=== PATIENT | female | born 1995 | race Caucasian/White ===

== ENCOUNTER → 2017-03-13 | Outpatient (CLI) | payer OTHER ==
[2017-03-13 16:16] LABS: ALBUMIN 3.8 GM/DL (3.2-5.2); ALBUMIN/GLOBULIN RATIO 1.03 (1.00-1.93); ALKALINE PHOSPHATASE 87 U/L (45-117); ALT/SGPT 23 U/L (12-78); ANION GAP 8 MEQ/L (8-16); AST/SGOT 14 U/L (15-37); BILIRUBIN,TOTAL 0.3 MG/DL (0.2-1.0); BLOOD UREA NITROGEN 13 MG/DL (7-18); CALCIUM LEVEL 8.3 MG/DL (8.5-10.1); CARBON DIOXIDE LEVEL 25 MEQ/L (21-32); CHLORIDE LEVEL 108 MEQ/L (98-107); CREATININE FOR GFR 0.75 MG/DL (0.55-1.02); GLOMERULAR FILTRATION RATE > 60.0 (>60); GLUCOSE, FASTING 81 MG/DL (70-105); SODIUM LEVEL 141 MEQ/L (136-145); TOTAL PROTEIN 7.5 GM/DL (6.4-8.2)
[2017-03-13 16:43] LABS: BASO % 0.4 % (0.0-1.0); EOS # 0.3 K/mm3 (0.0-0.50); EOS % 4.1 % (0.0-3.0); LARGE UNSTAINED CELL # 0.2 K/mm3 (0.0-0.4); LARGE UNSTAINED CELL % 2.6 % (0.0-4.0); LYMPH # 1.9 K/mm3 (1.5-6.5); LYMPH % 25.5 % (24.0-44.0); MEAN CORPUSCULAR HEMOGLOBIN 30.8 pg (27.0-33.0); MEAN CORPUSCULAR HGB CONC 33.6 g/dl (32.0-36.5); MEAN CORPUSCULAR VOLUME 91.8 fl (80.0-96.0); MONO # 0.4 K/mm3 (0.0-0.8); MONO % 5.3 % (0.0-5.0); NEUTROPHILS # 4.6 K/mm3 (1.8-7.7); PLATELET COUNT, AUTOMATED 328 k/mm3 (150-450); RED CELL DISTRIBUTION WIDTH 12.8 % (11.5-14.5); WHITE BLOOD COUNT 7.5 K/mm3 (4.0-10.0)
== END ==
LOC: M LAB 15:05
PROVIDERS: ATTEND Nurse Practitioner Family
DX: K21.9 Gastro-esophageal reflux disease without esophagitis (principal); F34.1 Dysthymic disorder

== ENCOUNTER 2017-04-03 09:59 | Emergency (ER) | payer OTHER ==
[~2017-04-03] VITALS: Ht 165.1 cm; Wt 74.8 kg
[2017-04-03] MEDS ORDERED: PARO15TA PO (10:14)
[2017-04-03] MEDS ORDERED: ADACEL/BOOSTRIX VACCINE (DIPHTH/PERTUSS/ACELL/TETANUS)0.5ML SYR (90715) IM ONE (10:45)
[2017-04-03] MEDS ORDERED: ULTR50TA PO ×2 (11:04→15:49)
[2017-04-03] MEDS ORDERED: AUGM875T27 PO (11:04)
[2017-04-03 11:11] VITALS: BP 127/90
== END 2017-04-03 11:19 | disposition home or self-care (01) ==
LOC: M ED 10:47
DX: S61.432A Puncture wound without foreign body of left hand, initial encounter (principal); W45.0XXA Nail entering through skin, initial encounter; Y92.017 Garden or yard in single-family (private) house as the place of occurrence of the external cause; Y93.89 Activity, other specified; Y99.9 Unspecified external cause status; F17.200 Nicotine dependence, unspecified, uncomplicated; Z79.899 Other long term (current) drug therapy

== ENCOUNTER 2017-09-25 20:04 | Emergency (ER) | payer OTHER ==
[~2017-09-25] VITALS: Ht 165.1 cm; Wt 81.8 kg
[~2017-09-25 20:04] MED LIST: AUGM875T28 PO; PARO15TA PO; ULTR50TA8 PO
[2017-09-25] MEDS ORDERED: prenatal PO (20:21)
[2017-09-25 20:54] LABS: MEAN CORPUSCULAR HGB CONC 33.9 g/dl (32.0-36.5); MEAN CORPUSCULAR VOLUME 88.5 fl (80.0-96.0); PLATELET COUNT, AUTOMATED 282 10^3/uL (150-450); RED CELL DISTRIBUTION WIDTH 11.9 % (11.5-14.5)
[2017-09-25 21:27] LABS: ANION GAP 11 MEQ/L (8-16); BLOOD UREA NITROGEN 11 MG/DL (7-18); CALCIUM LEVEL 8.6 MG/DL (8.5-10.1); CARBON DIOXIDE LEVEL 25 MEQ/L (21-32); CHLORIDE LEVEL 105 MEQ/L (98-107); CREATININE FOR GFR 0.64 MG/DL (0.55-1.02); GLOMERULAR FILTRATION RATE > 60.0 (>60); GLUCOSE, FASTING 72 MG/DL (70-105); HCG, SERUM QUANTITATIVE 786 MIU/ML; POTASSIUM SERUM 3.3 MEQ/L (3.5-5.1); SODIUM LEVEL 141 MEQ/L (136-145)
[2017-09-25 22:28] VITALS: BP 133/80
--- NOTE | 2017-09-25 22:30 | REPUSA ---
Clinical history: Pain. Findings: Real-time transabdominal and transvaginal ultrasound images of the pelvis were obtained. An anteverted uterus is noted, measuring 7.5 x 3.4 x 5.2 cm. The uterus demonstrates normal echotexture and echogenicity. There is a single intrauterine gestational sac with a mean sac diameter 3.0 cm. No pole or yolk sac is identified. The adnexa are unremarkable. The left ovary was not visualized . The right ovary measures 2.5 x 1.4 by 1.1 cm. There is no evidence of free fluid. Impression: Suspected early intrauterine gestational sac measuring 5 weeks. No pole or yolk sac is seen at this time, likely because of the early age of the gestation. Follow-up with serial serum beta hCG levels is recommended for further evaluation.
== END 2017-09-25 22:30 | disposition home or self-care (01) ==
LOC: M ED 20:04
DX: O20.0 Threatened abortion (principal); Z3A.01 Less than 8 weeks gestation of pregnancy; O99.331 Smoking (tobacco) complicating pregnancy, first trimester; F17.210 Nicotine dependence, cigarettes, uncomplicated

== ENCOUNTER → 2017-09-28 | Outpatient (CLI) | payer OTHER ==
[~2017-09-28] MED LIST changes: +prenatal PO
== END ==
LOC: M LAB 10:23
PROVIDERS: ATTEND Specialist
DX: Z34.80 Encounter for supervision of other normal pregnancy, unspecified trimester (principal)

== ENCOUNTER → 2017-10-05 | Outpatient (CLI) | payer OTHER | LOC: M LAB 09:40 | PROVIDERS: ATTEND Specialist | DX: O02.1 Missed abortion (principal) ==

== ENCOUNTER → 2018-02-01 | Outpatient (CLI) | payer OTHER, MEDICAID ==
[2018-02-01 17:43] LABS: BASO % 0.2 % (0.0-1.0); EOS # 0.1 10^3/uL (0.0-0.50); EOS % 0.8 % (0.0-3.0); HEMOGLOBIN 12.8 g/dl (12.0-16.0); IMMATURE GRANULOCYTE % 0.4 % (0-3.0); LYMPH # 2.1 10^3/uL (1.5-6.5); LYMPH % 18.1 % (24.0-44.0); MEAN CORPUSCULAR HEMOGLOBIN 29.3 pg (27.0-33.0); MEAN CORPUSCULAR HGB CONC 33.7 g/dl (32.0-36.5); MONO # 0.8 10^3/uL (0.0-0.8); MONO % 6.7 % (0.0-5.0); NEUTROPHILS # 8.6 10^3/uL (1.8-7.7); NEUTROPHILS % 73.8 % (36.0-66.0); PLATELET COUNT, AUTOMATED 285 10^3/uL (150-450); RED BLOOD COUNT 4.37 10^6/uL (4.00-5.40); RED CELL DISTRIBUTION WIDTH 12.6 % (11.5-14.5); WHITE BLOOD COUNT 11.7 10^3/uL (4.0-10.0)
[2018-02-01 21:18] LABS: CHLAMYDIA DNA AMPLIFICATION NEGATIVE (NEGATIVE); GC DNA AMPLIFICATION NEGATIVE (NEGATIVE)
[2018-02-03 14:39] LABS: RUBELLA IgG QUALITATIVE IMMUNE (IMMUNE)
[2018-02-03 14:40] LABS: HBsAg Prenatal NEGATIVE (NEGATIVE)
[2018-02-03 15:07] LABS: HEPATITIS C VIRUS ABY INDEX 0.2 INDEX (<0.8)
[2018-02-03 15:08] LABS: HIV 1&2 SCREEN CENTAUR NEGATIVE (NEGATIVE)
== END ==
LOC: M SMT 14:18
DX: Z3A.09 9 weeks gestation of pregnancy (principal); Z34.81 Encounter for supervision of other normal pregnancy, first trimester

== ENCOUNTER 2018-03-05 13:06 | Outpatient (REF) | payer OTHER, MEDICAID | END 2018-03-08 | LOC: M LAB REF 13:06 | DX: Z36.9 Encounter for antenatal screening, unspecified (principal) | CPT/HCPCS: 87088; 87186 ==

== ENCOUNTER → 2018-03-16 | Outpatient (CLI) | payer OTHER, MEDICAID | LOC: M RAD 11:05 | DX: Z34.82 Encounter for supervision of other normal pregnancy, second trimester (principal); Z3A.18 18 weeks gestation of pregnancy | CPT/HCPCS: 76817 ==

== ENCOUNTER → 2018-04-01 | Outpatient (REF) | payer OTHER, MEDICAID | LOC: M LAB REF 12:49 | DX: Z34.82 Encounter for supervision of other normal pregnancy, second trimester (principal) ==

== ENCOUNTER → 2018-04-13 | Outpatient (CLI) | payer OTHER, MEDICAID | LOC: M RAD 15:01 | DX: O44.42 Low lying placenta NOS or without hemorrhage, second trimester (principal); Z36.89 Encounter for other specified antenatal screening; Z3A.22 22 weeks gestation of pregnancy | CPT/HCPCS: 76817 ==

== ENCOUNTER → 2018-05-31 | Outpatient (CLI) | payer OTHER, MEDICAID ==
[2018-05-31 19:12] LABS: HEMATOCRIT 31.7 % (36.0-47.0); HEMOGLOBIN 10.7 g/dl (12.0-15.5); MEAN CORPUSCULAR HEMOGLOBIN 30.4 pg (27.0-33.0); MEAN CORPUSCULAR HGB CONC 33.8 g/dl (32.0-36.5); MEAN CORPUSCULAR VOLUME 90.1 fl (80.0-96.0); PLATELET COUNT, AUTOMATED 247 10^3/uL (150-450); RED BLOOD COUNT 3.52 10^6/uL (4.00-5.40); RED CELL DISTRIBUTION WIDTH 12.8 % (11.5-14.5); WHITE BLOOD COUNT 10.5 10^3/uL (4.0-10.0)
[2018-05-31 19:24] LABS: GLUCOSE CHALLENGE TEST 1 HOUR 117 MG/DL (LESS THAN 140)
== END ==
LOC: M SMT 13:03
DX: Z34.82 Encounter for supervision of other normal pregnancy, second trimester (principal); Z36.89 Encounter for other specified antenatal screening
CPT/HCPCS: 82950

== ENCOUNTER 2018-08-09 05:24 | Inpatient (IN) | payer OTHER, MEDICAID ==
[2018-08-09] MEDS ORDERED: BICITRA 30ML SOLN UDC As Ordered (05:40)
[2018-08-09] MEDS ORDERED: ceFAZolin 2 GM/D5W 50 ML IV BAG (J0690 PER 500MG) As Ordered (05:40)
[2018-08-09 05:57] LABS: HEMATOCRIT 34.2 % (36.0-47.0); HEMOGLOBIN 11.3 g/dl (12.0-15.5); MEAN CORPUSCULAR HEMOGLOBIN 29.5 pg (27.0-33.0); MEAN CORPUSCULAR VOLUME 89.3 fl (80.0-96.0); PLATELET COUNT, AUTOMATED 281 10^3/uL (150-450); RED BLOOD COUNT 3.83 10^6/uL (4.00-5.40); RED CELL DISTRIBUTION WIDTH 12.9 % (11.5-14.5); WHITE BLOOD COUNT 11.8 10^3/uL (4.0-10.0)
[2018-08-09] MEDS: LR 800 ML IV (06:00)
[2018-08-09] MEDS ORDERED: LR 1,000 ML IV (06:00)
[2018-08-09] MEDS: BICITRA 30ML SOLN UDC PO (07:15)
[2018-08-09] MEDS ORDERED: NALOXONE INJ 0.4 MG/1 ML VIAL (J2310) IV ×2 (07:57)
[2018-08-09] MEDS ORDERED: ONDANSETRON 4MG/2ML VIAL (J2405) IV ×2 (07:57→09:15)
[2018-08-09] MEDS ORDERED: fentaNYL 100 MCG/2 ML INJECTION (J3010) As Ordered (08:25)
[2018-08-09] MEDS ORDERED: OXYTOCIN INJ 10 UNITS/ML VIAL (J2590) As Ordered ×4 (08:25)
[2018-08-09] MEDS ORDERED: ONDANSETRON 4MG/2ML VIAL (J2405) As Ordered (08:25)
[2018-08-09] MEDS ORDERED: KETOROLAC 60 MG/2 ML VIAL (J1885) As Ordered (08:25)
[2018-08-09] MEDS ORDERED: MORPHINE PRES-FREE INJ 10 MG/10 ML VIAL (J2274) As Ordered (08:25)
[2018-08-09] MEDS ORDERED: RHOGAM 300 MCG (1500 IU) INJ (J2790) IM (09:00)
[2018-08-09] MEDS ORDERED: MEASLES,MUMPS,RUBELLA VACCINE INJ (MMR-II) (90707) SC (09:00)
[2018-08-09] MEDS: PRENATAL VITAMINS CHEWABLE TABLET PO (09:00)
[2018-08-09] MEDS ORDERED: MEPERIDINE INJ 25 MG/ML VIAL (J2175) As Ordered (09:10)
[2018-08-09] MEDS: MEPERIDINE INJ 25 MG/ML VIAL (J2175) IV (09:11)
[2018-08-09] MEDS ORDERED: PERCOCET 5MG/325MG TAB PO (09:15)
[2018-08-09] MEDS ORDERED: HYDROMORPHONE HCL 0.5 MG/ 0.5 ML SYRINGE (J1170 PER 1) IV (09:15)
[2018-08-09] MEDS ORDERED: fentaNYL 100 MCG/2 ML INJECTION (J3010) IV (09:15)
[2018-08-09] MEDS ORDERED: NALBUPHINE HCL 10 MG/ML AMP (J2300) IV (09:15)
[2018-08-09] MEDS: METOCLOPRAMIDE INJ 10MG/2ML VIAL (J2765) IV (10:57)
[2018-08-09] MEDS: LR 1,000 ML IV ×4 (11:05→19:00)
[2018-08-09] MEDS: NALBUPHINE HCL 10 MG/ML AMP (J2300) IV (12:42)
[2018-08-09] MEDS: ONDANSETRON 4MG/2ML VIAL (J2405) IV (13:40)
[2018-08-09] MEDS: KETOROLAC 30 MG/ML VIAL (J1885) IV ×2 (16:06→21:20)
[2018-08-09] MEDS: PERCOCET 5MG/325MG TAB PO (20:40)
[2018-08-10] MEDS ORDERED: PILL CRUSHER/CUTTER 1 EACH XX (00:30)
[2018-08-10] MEDS: PERCOCET 5MG/325MG TAB PO ×5 (01:04→20:20)
[2018-08-10] MEDS: FAMOTIDINE 20 MG TAB PO ×3 (01:05→20:20)
[2018-08-10] MEDS: KETOROLAC 30 MG/ML VIAL (J1885) IV (03:22)
[2018-08-10 06:48] LABS: HEMATOCRIT 25.6 % (36.0-47.0); MEAN CORPUSCULAR HEMOGLOBIN 29.6 pg (27.0-33.0); MEAN CORPUSCULAR HGB CONC 32.8 g/dl (32.0-36.5); MEAN CORPUSCULAR VOLUME 90.1 fl (80.0-96.0); PLATELET COUNT, AUTOMATED 199 10^3/uL (150-450); RED BLOOD COUNT 2.84 10^6/uL (4.00-5.40); WHITE BLOOD COUNT 10.3 10^3/uL (4.0-10.0)
[2018-08-10 06:51] LABS: HEMOGLOBIN 8.4 g/dl (12.0-15.5)
[2018-08-10] MEDS: PRENATAL VITAMINS CHEWABLE TABLET PO (09:55)
[2018-08-10] MEDS: IBUPROFEN 800 MG TAB PO ×2 (10:23→20:19)
[2018-08-10] MEDS: DOCUSATE SODIUM 100 MG CAP PO (20:19)
[2018-08-11] MEDS: IBUPROFEN 800 MG TAB PO ×2 (02:32→11:11)
[2018-08-11] MEDS: PERCOCET 5MG/325MG TAB PO (05:55)
[2018-08-11] MEDS: FAMOTIDINE 20 MG TAB PO (09:29)
[2018-08-11] MEDS: PRENATAL VITAMINS CHEWABLE TABLET PO (09:29)
[2018-08-11] MEDS: INFLUENZA QUADRIVALENT PF VACCINE 0.5ML SYRINGE (90686) IM (11:12)
== END 2018-08-11 11:52 | disposition home or self-care (01) | DRG 766 ==
LOC: M LDI 05:24 → M OBS 10:27
PROVIDERS: Specialist
PROC: 10D00Z1 Extraction of Products of Conception, Low, Open Approach (ICD-10-PCS; principal; 2018-08-09 07:30)
DX: O34.211 Maternal care for low transverse scar from previous cesarean delivery (principal); Z37.0 Single live birth; Z3A.39 39 weeks gestation of pregnancy

== ENCOUNTER → 2018-09-21 | Outpatient (CLI) | payer OTHER, MEDICAID ==
[2018-09-21 13:33] LABS: HEMATOCRIT 43.6 % (36.0-47.0); HEMOGLOBIN 13.5 g/dl (12.0-15.5); MEAN CORPUSCULAR HEMOGLOBIN 27.7 pg (27.0-33.0); MEAN CORPUSCULAR VOLUME 89.3 fl (80.0-96.0); PLATELET COUNT, AUTOMATED 376 10^3/uL (150-450); RED BLOOD COUNT 4.88 10^6/uL (4.00-5.40); RED CELL DISTRIBUTION WIDTH 13.2 % (11.5-14.5); WHITE BLOOD COUNT 6.6 10^3/uL (4.0-10.0)
[2018-09-21 13:39] LABS: CONTROL LINE HCG INT CTR LINE PRESENT; HCG, SERUM QUALITATIVE NEGATIVE (NEGATIVE)
== END ==
LOC: M SMT 09:56
DX: N92.4 Excessive bleeding in the premenopausal period (principal)
CPT/HCPCS: 84443

== ENCOUNTER 2018-11-04 21:24 | Emergency (ER) | payer OTHER, MEDICAID ==
[2018-11-05] MEDS: GI COCKTAIL 50ML BTL(HYOSCYAMINE/MAALOX/LIDOCAINE VISCOUS)(1:3:1) PO (00:41)
[2018-11-05 00:57] LABS: BASO % 0.2 % (0.0-1.0); EOS # 0.1 10^3/uL (0.0-0.50); EOS % 0.8 % (0.0-3.0); HEMATOCRIT 41.6 % (36.0-47.0); HEMOGLOBIN 13.5 g/dl (12.0-15.5); IMMATURE GRANULOCYTE % 0.4 % (0-3.0); LYMPH # 1.7 10^3/uL (1.5-6.5); LYMPH % 13.8 % (24.0-44.0); MEAN CORPUSCULAR HEMOGLOBIN 27.6 pg (27.0-33.0); MEAN CORPUSCULAR HGB CONC 32.5 g/dl (32.0-36.5); MEAN CORPUSCULAR VOLUME 85.1 fl (80.0-96.0); MONO # 0.7 10^3/uL (0.0-0.8); MONO % 6.1 % (0.0-5.0); NEUTROPHILS # 9.5 10^3/uL (1.8-7.7); NEUTROPHILS % 78.7 % (36.0-66.0); PLATELET COUNT, AUTOMATED 260 10^3/uL (150-450); RED BLOOD COUNT 4.89 10^6/uL (4.00-5.40); WHITE BLOOD COUNT 12.1 10^3/uL (4.0-10.0)
[2018-11-05 01:26] LABS: D-DIMER QUANT < 270 ng/ml (<500)
[2018-11-05 01:28] LABS: ANION GAP 9 MEQ/L (8-16); BLOOD UREA NITROGEN 13 MG/DL (7-18); CALCIUM LEVEL 8.6 MG/DL (8.5-10.1); CARBON DIOXIDE LEVEL 26 MEQ/L (21-32); CHLORIDE LEVEL 106 MEQ/L (98-107); CK-MB VALUE MASS < 1.0 NG/ML (<3.6); CPK CREATINE PHOSPHOKINASE 32 U/L (26-192); CREATININE FOR GFR 0.81 MG/DL (0.55-1.30); GLOMERULAR FILTRATION RATE > 60.0 (>60); GLUCOSE, FASTING 85 MG/DL (70-100); HCG, SERUM QUANTITATIVE < 1.0 MIU/ML; MB/CK RELATIVE INDEX 3.12 (< OR =4); POTASSIUM SERUM 3.5 MEQ/L (3.5-5.1); SODIUM LEVEL 141 MEQ/L (136-145); THYROID STIMULATING HORMONE 0.821 uIU/ML (0.358-3.740); TROPONIN I < 0.02 NG/ML (< 0.10)
== END 2018-11-05 02:13 | disposition home or self-care (01) ==
LOC: M ED 11-05 02:13
DX: K21.9 Gastro-esophageal reflux disease without esophagitis (principal); F17.200 Nicotine dependence, unspecified, uncomplicated
CPT/HCPCS: 71046

== ENCOUNTER 2018-11-07 18:29 | Emergency (ER) | payer OTHER, MEDICAID ==
[~2018-11-07] VITALS: Ht 165.1 cm; Wt 70.5 kg
[~2018-11-07 18:29] MED LIST changes: +AMOX500C PO; +COLA100C5 PO; +IBUP-1114 PO; +MIRE1IUD IU; +OMEP40CA2 PO; +OXYC1TAB23 PO; +PRENTAB9 PO; +RANI1TAB6 PO; +SIME180C PO; +SUCR1SS PO
[2018-11-07 18:30] VITALS: BP 121/70
[2018-11-07] MEDS ORDERED: GI COCKTAIL 50ML BTL(HYOSCYAMINE/MAALOX/LIDOCAINE VISCOUS)(1:3:1) PO ONE (19:30)
[2018-11-07] MEDS ORDERED: KETOROLAC 30 MG/ML VIAL (J1885) IV ONE (19:30)
[2018-11-07] MEDS ORDERED: NS 1,000 ML IV ONE (19:30)
[2018-11-07 19:49] LABS: BASO % 0.5 % (0.0-1.0); EOS # 0.1 10^3/uL (0.0-0.50); EOS % 0.8 % (0.0-3.0); HEMATOCRIT 41.3 % (36.0-47.0); HEMOGLOBIN 13.3 g/dl (12.0-15.5); LYMPH # 1.4 10^3/uL (1.5-6.5); MEAN CORPUSCULAR HEMOGLOBIN 27.4 pg (27.0-33.0); MEAN CORPUSCULAR HGB CONC 32.2 g/dl (32.0-36.5); MONO # 0.7 10^3/uL (0.0-0.8); MONO % 7.8 % (0.0-5.0); NEUTROPHILS # 6.2 10^3/uL (1.8-7.7); NEUTROPHILS % 73.3 % (36.0-66.0); PLATELET COUNT, AUTOMATED 306 10^3/uL (150-450); RED BLOOD COUNT 4.86 10^6/uL (4.00-5.40); WHITE BLOOD COUNT 8.5 10^3/uL (4.0-10.0)
[2018-11-07 20:07] LABS: HCG, SERUM QUALITATIVE NEGATIVE (NEGATIVE)
[2018-11-07 20:16] LABS: ALBUMIN 3.9 GM/DL (3.2-5.2); ALT/SGPT 272 U/L (12-78); BILIRUBIN,DIRECT 0.3 MG/DL (0.0-0.2); BILIRUBIN,TOTAL 0.5 MG/DL (0.2-1.0); BLOOD UREA NITROGEN 17 MG/DL (7-18); CALCIUM LEVEL 8.6 MG/DL (8.5-10.1); CARBON DIOXIDE LEVEL 25 MEQ/L (21-32); CHLORIDE LEVEL 109 MEQ/L (98-107); CREATININE FOR GFR 0.75 MG/DL (0.55-1.30); GLOMERULAR FILTRATION RATE > 60.0 (>60); GLUCOSE, FASTING 104 MG/DL (70-100); LIPASE 105 U/L (73-393); SODIUM LEVEL 143 MEQ/L (136-145); TOTAL PROTEIN 7.6 GM/DL (6.4-8.2)
--- NOTE | 2018-11-07 22:05 | REPVR ---
EXAM: US Abdomen Limited, Right Upper Quadrant EXAM DATE/TIME: 11/07/2018 9:12 PM CLINICAL HISTORY: 23 years old, female; Pain; Abdominal pain; Acute; Additional info: Elev. Lfts, epigastric pain TECHNIQUE: Real-time ultrasound of the abdomen with image documentation. Examination was focused on the right upper quadrant. COMPARISON: No relevant prior studies available. FINDINGS: Liver: The liver demonstrates no focal defects. Gallbladder: The gallbladder demonstrates no wall thickening measuring 1-2 mm. There are multiple shadowing gallstones. Common bile duct: The common bile duct measures 5 mm. Pancreas: The pancreas is normal in the head and body. The tail is not well seen due to gas shadowing. Right kidney: The right kidney is normal measuring 11.1 cm. IMPRESSION: 1. Cholelithiasis with multiple shadowing stones. There is no gallbladder wall thickening. 2. Otherwise negative right upper quadrant sonogram. Electronically signed by: Manuelito Sousa On 11/07/2018 22:04:27 PM
[2018-11-07] MEDS ORDERED: ISOVUE-370 76% 100ML VIAL (Q9967) As Ordered ONE (22:27)
[2018-11-07] MEDS ORDERED: PANTOPRAZOLE 40MG INJ (PROTONIX) (C9113) IV ONE (22:30)
--- NOTE | 2018-11-07 22:52 | REPVR ---
EXAM: CT Chest With Contrast EXAM DATE/TIME: 11/07/2018 10:33 PM CLINICAL HISTORY: 23 years old, female; Pain; Chest pain; Type not specified; Additional info: Chest pain, esophagitis, elev lfts TECHNIQUE: Axial computed tomography images of the chest with intravenous contrast. All CT scans at this facility use at least one of these dose optimization techniques: automated exposure control; mA and/or kV adjustment per patient size (includes targeted exams where dose is matched to clinical indication); or iterative reconstruction. Coronal and sagittal reformatted images were created and reviewed. CONTRAST: 100 ml of ISOVUE 370 administered intravenously. COMPARISON: CR Chest, 2 view PA, Lat 11/07/2018 8:16 PM FINDINGS: Lungs: Minimal subpleural atelectasis in the right lower lobe and possible minimal groundglass infiltrate. Pleural space: Normal. No pneumothorax. No pleural effusion. Heart: Normal. No cardiomegaly. No pericardial effusion. Mediastinum: The esophagus is within normal limits. Aorta: Normal. No aortic aneurysm. Lymph nodes: Unremarkable. No enlarged lymph nodes. Bones/joints: Unremarkable. No acute fracture. Soft tissues: Unremarkable. Liver: Slight periportal edema in the right hepatic lobe. IMPRESSION: 1. Slight periportal edema in the right hepatic lobe. 2. Minimal posterior subpleural atelectasis and possible minimal infiltrate in the right lower lobe. 3. Otherwise negative CT chest. Electronically signed by: Manuelito Sousa On 11/07/2018 22:52:00 PM
--- NOTE | 2018-11-07 22:57 | REPVR ---
EXAM: CT Abdomen With Contrast EXAM DATE/TIME: 11/07/2018 10:33 PM CLINICAL HISTORY: 23 years old, female; Pain; Abdominal pain; Epigastric; Additional info: Chest pain, esophagitis, elev lfts TECHNIQUE: Axial computed tomography images of the abdomen with intravenous contrast. All CT scans at this facility use at least one of these dose optimization techniques: automated exposure control; mA and/or kV adjustment per patient size (includes targeted exams where dose is matched to clinical indication); or iterative reconstruction. Coronal and sagittal reformatted images were created and reviewed. CONTRAST: 100 ml of ISOVUE 370 administered intravenously. COMPARISON: GALLBLADDER US 11/07/2018 8:51 PM FINDINGS: Lower thorax: Minimal right lower lobe subpleural atelectasis and possible minimal ground glass infiltrate. Liver: Slight periportal edema in portions of the right hepatic lobe. Gallbladder and bile ducts: Layering sludge and probable faint stones in the gallbladder. Pancreas: The CBD is not dilated measuring approximately 5 mm in the pancreatic head. Spleen: Normal. No splenomegaly. Adrenals: Normal. No mass. Kidneys and ureters: Small nonobstructing left renal calculus. Stomach and bowel: Normal. No obstruction. No mucosal thickening. Intraperitoneal space: Unremarkable. No free air. No significant fluid collection. Bones/joints: Unremarkable.No acute fracture. No dislocation. Soft tissues: Unremarkable. Vasculature: Unremarkable. No abdominal aortic aneurysm. Lymph nodes: Unremarkable. No enlarged lymph nodes. IMPRESSION: 1. Layering sludge and probable faint gallstones in the gallbladder. 2. Slight periportal edema in portions of the right hepatic lobe. 3. Minimal right lower lobe subpleural atelectasis possible groundglass infiltrate posteriorly. 4. Small nonobstructing left renal calculus. 5. Otherwise negative CT abdomen/pelvis. Electronically signed by: Manuelito Sousa On 11/07/2018 22:57:10 PM
[2018-11-07] MEDS ORDERED: PROT1TAB2 PO (23:12)
[2018-11-07] MEDS ORDERED: LIDO1SOL7 PO (23:12)
[2018-11-07] MEDS ORDERED: PROT20TA11 PO (23:18)
[2018-11-08 08:30] LABS: HEPATITIS A ANTIBODY IGM NEGATIVE (NEGATIVE); HEPATITIS B CORE ANTIBODY IGM NEGATIVE (NEGATIVE); HEPATITIS B SURFACE ANTIGEN NEGATIVE (NEGATIVE); HEPATITIS C VIRUS ABY INDEX 0.1 INDEX (<0.8)
--- NOTE | 2018-11-10 09:02 | REP ---
Clinical: Lower chest and abdominal pain . Comparison: 11/05/2018 . Technique: PA and lateral. Findings: The mediastinum and cardiac silhouette are normal. The lung malik are clear and without acute consolidation, effusion, or pneumothorax. The skeletal structures are intact and normal. Impression: 1. No acute cardiopulmonary process. Electronically Signed by Cleveland Ojeda MD 11/07/2018 08:20 P
--- NOTE | 2018-11-13 08:54 | ED PDOC ---
Post-Departure Follow-Up radiology rpeor tfaxed to Kane Magdaleno Sarah MD Nov 13, 2018 08:54
[2018-11-14] MEDS ORDERED: CEFD1CAP8 PO (03:21)
== END 2018-11-07 23:23 | disposition home or self-care (01) ==
LOC: M ED 18:29
DX: K21.0 Gastro-esophageal reflux disease with esophagitis (principal); R79.89 Other specified abnormal findings of blood chemistry; Z97.5 Presence of (intrauterine) contraceptive device; F17.210 Nicotine dependence, cigarettes, uncomplicated
CPT/HCPCS: 71046; 71260; 74160; 76705; 80048; 80076; 83690; 84703; 85025; 86705; 86709; 86803; 87340; 96374; 96375; 99284; C9113; J1885; Q9967

== ENCOUNTER 2018-11-17 03:00 | Emergency (ER) | payer OTHER, MEDICAID ==
[~2018-11-17] VITALS: Ht 165.1 cm; Wt 70.5 kg
[~2018-11-17 03:00] MED LIST changes: +CEFD1CAP8 PO; +LIDO1SOL7 PO; +PROT1TAB2 PO; +PROT20TA11 PO
[2018-11-17 03:51] LABS: BASO % 0.3 % (0.0-1.0); EOS # 0.2 10^3/uL (0.0-0.50); EOS % 2.1 % (0.0-3.0); HEMATOCRIT 38.5 % (36.0-47.0); HEMOGLOBIN 12.4 g/dl (12.0-15.5); LYMPH # 1.5 10^3/uL (1.5-6.5); LYMPH % 17.3 % (24.0-44.0); MEAN CORPUSCULAR HEMOGLOBIN 27.3 pg (27.0-33.0); MEAN CORPUSCULAR HGB CONC 32.2 g/dl (32.0-36.5); MEAN CORPUSCULAR VOLUME 84.8 fl (80.0-96.0); MONO # 0.6 10^3/uL (0.0-0.8); MONO % 7.4 % (0.0-5.0); NEUTROPHILS # 6.3 10^3/uL (1.8-7.7); NEUTROPHILS % 72.4 % (36.0-66.0); PLATELET COUNT, AUTOMATED 306 10^3/uL (150-450); RED BLOOD COUNT 4.54 10^6/uL (4.00-5.40); WHITE BLOOD COUNT 8.7 10^3/uL (4.0-10.0)
[2018-11-17 04:38] LABS: ALBUMIN 3.7 GM/DL (3.2-5.2); ALT/SGPT 66 U/L (12-78); BILIRUBIN,DIRECT 0.1 MG/DL (0.0-0.2); BILIRUBIN,TOTAL 0.2 MG/DL (0.2-1.0); BLOOD UREA NITROGEN 18 MG/DL (7-18); CALCIUM LEVEL 8.6 MG/DL (8.5-10.1); CARBON DIOXIDE LEVEL 26 MEQ/L (21-32); CHLORIDE LEVEL 104 MEQ/L (98-107); GLOMERULAR FILTRATION RATE > 60.0 (>60); GLUCOSE, FASTING 108 MG/DL (70-100); LIPASE 138 U/L (73-393); POTASSIUM SERUM 4.4 MEQ/L (3.5-5.1); SODIUM LEVEL 139 MEQ/L (136-145); TOTAL PROTEIN 7.5 GM/DL (6.4-8.2)
[2018-11-17 04:44] LABS: HCG, SERUM QUALITATIVE NEGATIVE (NEGATIVE)
--- NOTE | 2018-11-17 07:37 | REPVR ---
EXAM: US Abdomen Limited, Right Upper Quadrant EXAM DATE/TIME: 11/17/2018 7:26 AM CLINICAL HISTORY: 23 years old, female; Pain; Abdominal pain; Epigastric; Additional info: Ruq pain; HX gallstones TECHNIQUE: Real-time ultrasound of the abdomen with image documentation. Examination was focused on the right upper quadrant. COMPARISON: GALLBLADDER US 11/07/2018 8:51 PM FINDINGS: Liver: The liver is heterogeneous and echogenic. No focal hepatic lesion is identified. Gallbladder: The gallbladder is filled with gallstones and sludge - BASILIA sign. The anterior gallbladder wall is upper normal in thickness measuring 3 mm with no wall edema or pericholecystic fluid. No sonographic Knight sign was elicited. Common bile duct: The CBD is normal in size measuring 4 mm. Pancreas: The pancreas is obscured by bowel gas. Right kidney: The right kidney measures 10.8 x 5.1 x 4.0 cm. The right renal cortical echogenicity is within normal limits. There is no right renal mass, stone, cyst or hydronephrosis. IMPRESSION: 1. Filled gallbladder with stones and sludge but with no definite sonographic findings of acute cholecystitis. Correlate clinically. If clinically indicated HIDA scan may be obtained for further evaluation. 2. Fatty infiltration of the liver. Electronically signed by: Erickson Bingham On 11/17/2018 07:36:52 AM
[2018-11-17] MEDS ORDERED: ZOFR4TAB14 PO (08:06)
[2018-11-17 08:33] VITALS: BP 103/61
== END 2018-11-17 08:36 | disposition home or self-care (01) ==
LOC: M ED 03:00
DX: K80.20 Calculus of gallbladder without cholecystitis without obstruction (principal); K83.8 Other specified diseases of biliary tract; K76.0 Fatty (change of) liver, not elsewhere classified; R11.0 Nausea; Z87.19 Personal history of other diseases of the digestive system; K21.9 Gastro-esophageal reflux disease without esophagitis; F41.9 Anxiety disorder, unspecified; I49.3 Ventricular premature depolarization; F17.200 Nicotine dependence, unspecified, uncomplicated; Z79.899 Other long term (current) drug therapy; Z79.2 Long term (current) use of antibiotics

== ENCOUNTER 2018-12-24 09:26 | Day surgery (SDC) | payer OTHER, MEDICAID ==
[~2018-12-24] VITALS: Ht 165.1 cm; Wt 67.1 kg
[~2018-12-24 09:26] MED LIST changes: +LR 1,000 ML IV ONE; +PROPOFOL 200 MG/20 ML VIAL As Ordered ONE; +ZOFR4TAB14 PO
[2018-12-24] MEDS ORDERED: dexameTHASONE 4 MG/ML 1ML VIAL (J1100) As Ordered ONE (09:27)
[2018-12-24] MEDS ORDERED: ROCURONIUM BROMIDE 50 MG/5 ML VIAL As Ordered ONE (09:27)
[2018-12-24] MEDS ORDERED: LIDOCAINE 2% INJ 100 MG/5 ML SDV (FOR ANES.) As Ordered ONE (09:27)
[2018-12-24] MEDS ORDERED: fentaNYL 250 MCG/5 ML INJECTION (J3010) As Ordered ONE (09:27)
[2018-12-24] MEDS ORDERED: SUGAMMADEX SODIUM 500 MG/5 ML VIAL (BRIDION) As Ordered ONE (09:27)
[2018-12-24] MEDS ORDERED: ONDANSETRON 4MG/2ML VIAL (J2405) As Ordered ONE (09:27)
[2018-12-24] MEDS ORDERED: MIDAZOLAM INJ 2 MG/2 ML VIAL (J2250) As Ordered ONE ×2 (09:28→11:12)
[2018-12-24] MEDS ORDERED: KETOROLAC 60 MG/2 ML VIAL (J1885) As Ordered ONE (09:28)
[2018-12-24 10:13] LABS: URINE PREG TEST NEGATIVE (NEGATIVE)
[2018-12-24] MEDS ORDERED: METOCLOPRAMIDE INJ 10MG/2ML VIAL (J2765) IV ONE (10:45)
[2018-12-24] MEDS ORDERED: LIDOCAINE W/EPINEPHRINE 1% 20ML VIAL As Ordered ONE (11:25)
[2018-12-24] MEDS ORDERED: NORCO, ANEXSIA 5/325MG TABLET (HYDROcodone/ACETAMINOPHEN) PO PRN (13:00)
[2018-12-24] MEDS ORDERED: HYDROMORPHONE HCL 0.5 MG/ 0.5 ML SYRINGE (J1170 PER 1) IV PRN (13:00)
[2018-12-24] MEDS ORDERED: MEPERIDINE INJ 25 MG/ML VIAL (J2175) As Ordered ONE (13:15)
[2018-12-24] MEDS ORDERED: MEPERIDINE INJ 25 MG/ML VIAL (J2175) IV ONE (13:30)
[2018-12-24] MEDS: fentaNYL 100 MCG/2 ML INJECTION (J3010) IV PRN ×2 (13:31→13:36)
[2018-12-24 15:15] VITALS: BP 131/78
--- NOTE | 2018-12-27 14:08 | RO ---
DATE OF PROCEDURE: 12/24/2018 PREOPERATIVE DIAGNOSIS: Symptomatic cholelithiasis. POSTOPERATIVE DIAGNOSIS: Symptomatic cholelithiasis. PROCEDURE: Laparoscopic cholecystectomy. SURGEON: Dr. Jackson [employer] WORKER: Leisa Meng NP ANESTHESIA: General. ESTIMATED BLOOD LOSS: 5. COMPLICATIONS: None. INDICATIONS FOR PROCEDURE: Patient is a 23-year-old female, who presents with symptomatic cholelithiasis. Recommendation was to proceed laparoscopic, possible open cholecystectomy. Risks and benefits of the procedure not limited but including bleeding, infection, hernia formation, damage to surrounding structure, need for further surgery were discussed in detail with the patient. Informed was obtained and procedure was planned. DESCRIPTION OF PROCEDURE: The patient brought back to operating room #7. After sufficient sedation, the abdomen was sterilely prepped and draped. Next, a time-out was done to confirm proper patient and proper procedure. Following that a stab incision made in left lower quadrant, Veress needle was inserted and the abdomen was insufflated to 50 mmHg. Next, the Veress needle was left in place. A 5 mm Optiview port was placed infraumbilically in the midline. The 5 mm Optiview port was used to gain access to the abdomen there and once inside Veress needle site was examined. There were no signs of any injury. The Veress needle was then removed. The 11 mm port was then placed subxiphoid and two 5 mm ports in the right upper quadrant. The gallbladder was elevated up towards the right shoulder. The cystic duct and cystic artery were dissected free using a combination of blunt and sharp dissection. Once they were both clearly identified, they were both doubly clipped and cut. Due to the large size of the cystic duct, it was doubly clipped and then had a PDS Endoloop placed around the base of it as well. Once that was completed, the gallbladder was removed from the gallbladder fossa using electrocautery. It was removed intact and brought out through the epigastric port site in a 10 mm Endo Catch bag. However., during removal from the abdomen, the bag burst open and spilled some of the stones inside, which were all retrieved with a separate bag. Once that was completed, the right upper quadrant was irrigated. The abdomen was then desufflated. Skin incisions closed with #4-0 Vicryl subcuticular sutures. The abdomen cleaned and dried. Steri-Strips, 4 x 4 and tape were applied, thus ending procedure. edited: 01/05/2019 1228 [id number] [id number]
== END 2018-12-24 15:17 | disposition home or self-care (01) ==
LOC: M SDC 09:26
PROVIDERS: ATTEND Surgery
DX: K80.10 Calculus of gallbladder with chronic cholecystitis without obstruction (principal); F41.9 Anxiety disorder, unspecified; F32.9 Major depressive disorder, single episode, unspecified; I49.3 Ventricular premature depolarization; K21.9 Gastro-esophageal reflux disease without esophagitis; Z87.442 Personal history of urinary calculi; Z72.0 Tobacco use; Z97.5 Presence of (intrauterine) contraceptive device
CPT/HCPCS: 47562; 84703; 88304; J1100; J1885; J2175; J2250; J2405; J2765; J3010

== ENCOUNTER 2018-12-26 13:19 | Emergency (ER) | payer OTHER, MEDICAID ==
[~2018-12-26] VITALS: Ht 165.1 cm; Wt 67.3 kg
[~2018-12-26 13:19] MED LIST changes: -LR 1,000 ML IV ONE; -PROPOFOL 200 MG/20 ML VIAL As Ordered ONE
[2018-12-26] MEDS ORDERED: IBUP200C25 PO (13:33)
[2018-12-26] MEDS ORDERED: HYDR-3713 PO (13:33)
--- NOTE | 2018-12-26 15:01 | REP ---
CHEST, TWO VIEWS: There is no evidence of acute infiltrate. No pleural effusion is seen. The heart is normal in size. The mediastinal silhouette is unremarkable. The visualized osseous structures are intact. IMPRESSION: No acute pulmonary disease. Electronically Signed by Alexx Marie MD 12/26/2018 07:08 P
[2018-12-26] MEDS ORDERED: MORPHINE 4 MG/ML 1ML VIAL/SYRINGE (J2270) IV ONE (15:15)
[2018-12-26 15:31] LABS: BASO % 0.4 % (0.0-1.0); EOS # 0.1 10^3/uL (0.0-0.50); EOS % 1.8 % (0.0-3.0); HEMATOCRIT 36.8 % (36.0-47.0); LYMPH # 2.6 10^3/uL (1.5-6.5); LYMPH % 38.2 % (24.0-44.0); MEAN CORPUSCULAR HEMOGLOBIN 27.5 pg (27.0-33.0); MEAN CORPUSCULAR HGB CONC 32.6 g/dl (32.0-36.5); MEAN CORPUSCULAR VOLUME 84.2 fl (80.0-96.0); MONO # 0.4 10^3/uL (0.0-0.8); MONO % 6.6 % (0.0-5.0); NEUTROPHILS # 3.5 10^3/uL (1.8-7.7); NEUTROPHILS % 52.7 % (36.0-66.0); PLATELET COUNT, AUTOMATED 231 10^3/uL (150-450); RED BLOOD COUNT 4.37 10^6/uL (4.00-5.40); WHITE BLOOD COUNT 6.7 10^3/uL (4.0-10.0)
[2018-12-26 15:38] VITALS: BP 128/65
[2018-12-26] MEDS ORDERED: KETOROLAC 30 MG/ML VIAL (J1885) IV ONE (15:45)
[2018-12-26 15:49] LABS: ALBUMIN 3.5 GM/DL (3.2-5.2); ALT/SGPT 48 U/L (12-78); BILIRUBIN,DIRECT < 0.1 MG/DL (0.0-0.2); BILIRUBIN,TOTAL 0.4 MG/DL (0.2-1.0); BLOOD UREA NITROGEN 10 MG/DL (7-18); CARBON DIOXIDE LEVEL 24 MEQ/L (21-32); CHLORIDE LEVEL 109 MEQ/L (98-107); CREATININE FOR GFR 0.71 MG/DL (0.55-1.30); GLOMERULAR FILTRATION RATE > 60.0 (>60); GLUCOSE, FASTING 78 MG/DL (70-100); LIPASE 55 U/L (73-393); POTASSIUM SERUM 5.1 MEQ/L (3.5-5.1); SODIUM LEVEL 139 MEQ/L (136-145); TOTAL PROTEIN 6.7 GM/DL (6.4-8.2)
[2018-12-26] MEDS ORDERED: SIME180C PO (15:58)
[2018-12-26] MEDS ORDERED: MIRA3350 PO (16:00)
== END 2018-12-26 16:14 | disposition home or self-care (01) ==
LOC: M ED 13:19
DX: G89.18 Other acute postprocedural pain (principal); Z90.49 Acquired absence of other specified parts of digestive tract; F41.9 Anxiety disorder, unspecified; Z97.5 Presence of (intrauterine) contraceptive device; Z87.891 Personal history of nicotine dependence
CPT/HCPCS: 71046; 80048; 80076; 83690; 85025; 96374; 99283; J1885

== ENCOUNTER → 2020-12-06 | Outpatient (REF) | payer OTHER ==
[~2020-12-06] MED LIST changes: +HYDR-3713 PO; +IBUP200C25 PO; -LIDO1SOL7 PO; +LIDO2SOL17 PO; +MIRA3350 PO; -OMEP40CA2 PO; +OMEP40CA97 PO; -PARO15TA PO; +PARO30TA4 PO; +RANI-397 PO; -RANI1TAB6 PO
[2020-12-06 12:45] LABS: BASO % 0.4 % (0.0-1.0); EOS # 0.2 10^3/uL (0.0-0.5); EOS % 2.3 % (0.0-3.0); HEMOGLOBIN 14.6 g/dl (12.0-15.5); LYMPH # 2.5 10^3/uL (1.5-5.0); LYMPH % 32.5 % (24.0-44.0); MEAN CORPUSCULAR HEMOGLOBIN 29.7 pg (27.0-33.0); MEAN CORPUSCULAR HGB CONC 33.2 g/dl (32.0-36.5); MEAN CORPUSCULAR VOLUME 89.4 fl (80.0-96.0); MONO # 0.6 10^3/uL (0.0-0.8); MONO % 8.1 % (0.0-5.0); NEUTROPHILS # 4.3 10^3/uL (1.5-8.5); NEUTROPHILS % 56.1 % (36.0-66.0); PLATELET COUNT, AUTOMATED 286 10^3/uL (150-450); RED BLOOD COUNT 4.92 10^6/uL (4.00-5.40); WHITE BLOOD COUNT 7.7 10^3/uL (4.0-10.0)
[2020-12-06 13:22] LABS: ALBUMIN 3.8 GM/DL (3.2-5.2); ALT/SGPT 35 U/L (12-78); BILIRUBIN,TOTAL 0.3 MG/DL (0.2-1.0); BLOOD UREA NITROGEN 12 MG/DL (7-18); CALCIUM LEVEL 9.5 MG/DL (8.5-10.1); CARBON DIOXIDE LEVEL 28 MEQ/L (21-32); CHLORIDE LEVEL 105 MEQ/L (98-107); CHOLESTEROL LEVEL 262 MG/DL (<200); CHOLESTEROL RISK RATIO 5.574 (<5); CREATININE FOR GFR 0.89 MG/DL (0.55-1.30); FREE T4 1.03 NG/DL (0.76-1.46); GLOMERULAR FILTRATION RATE > 60.0 (>60); GLUCOSE, FASTING 95 MG/DL (70-100); HDL CHOLESTEROL 47 MG/DL (>40); LDL CHOLESTEROL 175 MG/DL (<100); NON-HDL-C 215 MG/DL; POTASSIUM SERUM 4.6 MEQ/L (3.5-5.1); SODIUM LEVEL 140 MEQ/L (136-145); TOTAL PROTEIN 7.4 GM/DL (6.4-8.2); TRIGLYCERIDES LEVEL 201 MG/DL (<150)
== END ==
LOC: M SFHCADAM 10:35
PROVIDERS: ATTEND Family Medicine
DX: Z00.00 Encounter for general adult medical examination without abnormal findings (principal); R00.2 Palpitations; R53.83 Other fatigue

== ENCOUNTER 2021-06-03 14:52 | Emergency (ER) | payer OTHER ==
[~2021-06-03] VITALS: Ht 165.1 cm; Wt 83.1 kg
[~2021-06-03 14:52] MED LIST changes: +OMEP40CA4 PO; -OMEP40CA97 PO; -SIME180C PO; +SIME180C25 PO
[2021-06-03 14:53] VITALS: BP 140/91
[2021-06-03] MEDS ORDERED: ACETAMINOPHEN 500 MG TAB PO ONE (18:05)
== END 2021-06-04 12:04 | disposition left against medical advice (07) ==
LOC: M ED 14:52
DX: Z53.9 Procedure and treatment not carried out, unspecified reason (principal); H92.02 Otalgia, left ear; F17.200 Nicotine dependence, unspecified, uncomplicated; Z97.5 Presence of (intrauterine) contraceptive device

== ENCOUNTER 2021-06-16 15:43 | Emergency (ER) | payer OTHER ==
[~2021-06-16] VITALS: Ht 165.1 cm; Wt 81.3 kg
[2021-06-16] MEDS ORDERED: GI COCKTAIL 50ML BTL(HYOSCYAMINE/MAALOX/LIDOCAINE VISCOUS)(1:3:1) PO ONE (18:25)
[2021-06-16 18:30] LABS: BASO % 0.3 % (0.0-1.0); EOS # 0.1 10^3/uL (0.0-0.5); EOS % 0.7 % (0.0-3.0); HEMATOCRIT 46.9 % (36.0-47.0); HEMOGLOBIN 15.7 g/dl (12.0-15.5); LYMPH # 1.4 10^3/uL (1.5-5.0); LYMPH % 13.6 % (24.0-44.0); MEAN CORPUSCULAR HEMOGLOBIN 29.3 pg (27.0-33.0); MEAN CORPUSCULAR HGB CONC 33.5 g/dl (32.0-36.5); MEAN CORPUSCULAR VOLUME 87.5 fl (80.0-96.0); MONO # 0.3 10^3/uL (0.0-0.8); MONO % 2.6 % (2.0-8.0); NEUTROPHILS # 8.4 10^3/uL (1.5-8.5); NEUTROPHILS % 82.5 % (36.0-66.0); PLATELET COUNT, AUTOMATED 300 10^3/uL (150-450); RED BLOOD COUNT 5.36 10^6/uL (4.00-5.40); WHITE BLOOD COUNT 10.1 10^3/uL (4.0-10.0)
[2021-06-16 18:59] LABS: HCG, SERUM QUALITATIVE NEGATIVE (NEGATIVE)
[2021-06-16 19:01] LABS: BLOOD UREA NITROGEN 14 MG/DL (7-18); CALCIUM LEVEL 9.2 MG/DL (8.5-10.1); CARBON DIOXIDE LEVEL 27 MEQ/L (21-32); CHLORIDE LEVEL 105 MEQ/L (98-107); CK-MB VALUE MASS < 1.0 NG/ML (<3.6); CPK CREATINE PHOSPHOKINASE 54 U/L (26-192); GLOMERULAR FILTRATION RATE > 60.0 (>60); GLUCOSE, FASTING 85 MG/DL (70-100); MB/CK RELATIVE INDEX 1.85 (< OR =4); POTASSIUM SERUM 4.3 MEQ/L (3.5-5.1); SODIUM LEVEL 140 MEQ/L (136-145); TROPONIN I < 0.02 NG/ML (< 0.10)
[2021-06-16] MEDS ORDERED: SUCR1TA PO (19:14)
[2021-06-16] MEDS ORDERED: PROT1TAB2 PO (19:14)
[2021-06-16] MEDS ORDERED: ACETAMINOPHEN 500 MG TAB PO ONE (19:20)
[2021-06-16 19:30] VITALS: BP 129/83
--- NOTE | 2021-06-17 19:46 | ECGEPIP ---
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
== END 2021-06-16 19:30 | disposition home or self-care (01) ==
LOC: M ED 15:43
DX: K21.9 Gastro-esophageal reflux disease without esophagitis (principal); R10.13 Epigastric pain; F41.9 Anxiety disorder, unspecified; F17.200 Nicotine dependence, unspecified, uncomplicated; I49.3 Ventricular premature depolarization; Z79.3 Long term (current) use of hormonal contraceptives

== ENCOUNTER → 2021-11-22 | Outpatient (CLI) | payer OTHER ==
[~2021-11-22] MED LIST changes: -CEFD1CAP8 PO; +CEFD300C41 PO; +SUCR1TA PO
== END ==
LOC: M LABSMTC 09:52
PROVIDERS: ATTEND Anesthesiology
DX: Z01.812 Encounter for preprocedural laboratory examination (principal); Z20.822 Contact with and (suspected) exposure to COVID-19

== ENCOUNTER 2021-11-27 13:48 | Day surgery (SDC) | payer OTHER ==
[~2021-11-27] VITALS: Ht 165.1 cm; Wt 82.9 kg
[~2021-11-27 13:48] MED LIST changes: +LR 1,000 ML IV ONE
[2021-11-27 14:59] LABS: HEMATOCRIT 40.8 % (36.0-47.0); HEMOGLOBIN 13.7 g/dl (12.0-15.5); MEAN CORPUSCULAR HEMOGLOBIN 29.3 pg (27.0-33.0); MEAN CORPUSCULAR HGB CONC 33.6 g/dl (32.0-36.5); MEAN CORPUSCULAR VOLUME 87.4 fl (80.0-96.0); PLATELET COUNT, AUTOMATED 270 10^3/uL (150-450); RED BLOOD COUNT 4.67 10^6/uL (4.00-5.40); WHITE BLOOD COUNT 8.3 10^3/uL (4.0-10.0)
[2021-11-27] MEDS ORDERED: IBUP-1022 PO (15:24)
[2021-11-27] MEDS ORDERED: OXYC1TAB23 PO (15:25)
[2021-11-27] MEDS ORDERED: HYDROmorphone HCL 2MG/ML 1ML VIAL As Ordered ONE (15:46)
[2021-11-27] MEDS ORDERED: MIDAZOLAM INJ 2MG/2ML VIAL (J2250 PER 1MG) As Ordered ONE (15:46)
[2021-11-27] MEDS ORDERED: propofoL 200 MG/20 ML VIAL As Ordered ONE (15:47)
[2021-11-27] MEDS ORDERED: fentaNYL 100 MCG/2 ML INJECTION (J3010) As Ordered ONE (15:47)
[2021-11-27] MEDS ORDERED: ROCURONIUM BROMIDE 50 MG/5 ML VIAL As Ordered ONE (15:47)
[2021-11-27] MEDS ORDERED: ONDANSETRON 4MG/2ML VIAL As Ordered ONE (15:47)
[2021-11-27] MEDS ORDERED: LIDOCAINE 2% 100MG/5ML SDV (FOR ANES.) As Ordered ONE (15:47)
[2021-11-27] MEDS ORDERED: KETOROLAC 60MG 2ML VIAL As Ordered ONE (15:47)
[2021-11-27] MEDS ORDERED: dexameTHASONE 4 MG/ML 1ML VIAL (J1100 PER 1MG) As Ordered ONE (15:47)
[2021-11-27] MEDS ORDERED: BUPIVACAINE HCL 0.25% 10ML VIAL As Ordered ONE (16:23)
[2021-11-27] MEDS ORDERED: SUGAMMADEX SODIUM 500 MG/5 ML VIAL (BRIDION) As Ordered ONE (17:25)
[2021-11-27] MEDS ORDERED: ACETAMINOPHEN 1000MG 100ML IV BTL (OFIRMEV) (J0131 PER 10MG) As Ordered ONE (17:25)
[2021-11-27] MEDS ORDERED: oxyCODONE 5MG TAB PO PRN (18:05)
[2021-11-27] MEDS ORDERED: ONDANSETRON 4MG/2ML VIAL IV PRN (18:05)
[2021-11-27] MEDS ORDERED: LR 1,000 ML IV SCH ×2 (18:05)
[2021-11-27] MEDS ORDERED: fentaNYL 100 MCG/2 ML INJECTION (J3010) IV PRN (18:05)
[2021-11-27] MEDS ORDERED: PERCOCET 5MG/325MG TAB PO PRN (18:05)
[2021-11-27 19:00] VITALS: BP 137/86
== END 2021-11-27 19:10 | disposition home or self-care (01) ==
LOC: M SDC 13:48
PROVIDERS: ATTEND Specialist
DX: Z30.2 Encounter for sterilization (principal); F17.218 Nicotine dependence, cigarettes, with other nicotine-induced disorders; K21.9 Gastro-esophageal reflux disease without esophagitis; F41.9 Anxiety disorder, unspecified; Z79.899 Other long term (current) drug therapy
CPT/HCPCS: 36415; 58301; 58661; 81025; 85027; 88302; J0131; J1100; J1170; J1885; J2250; J2405; J3010

== ENCOUNTER → 2021-12-24 | Outpatient (CLI) | payer OTHER ==
[~2021-12-24] MED LIST changes: +IBUP-1022 PO; -LR 1,000 ML IV ONE
== END ==
LOC: M ADAMS 13:41
PROVIDERS: ATTEND Family Medicine
DX: R06.00 Dyspnea, unspecified (principal)

== ENCOUNTER → 2022-01-01 | Outpatient (CLI) | payer OTHER | LOC: M LABSMTC 09:35 | PROVIDERS: ATTEND Anesthesiology | DX: Z01.818 Encounter for other preprocedural examination (principal); Z11.59 Encounter for screening for other viral diseases ==

== ENCOUNTER 2022-01-06 11:36 | Day surgery (SDC) | payer OTHER ==
[~2022-01-06] VITALS: Ht 165.1 cm; Wt 84.4 kg
[~2022-01-06 11:36] MED LIST changes: +LIDOCAINE 2% 100MG/5ML SDV (FOR ANES.) As Ordered ONE; +NS 1,000 ML IV ONE; +propofoL 200 MG/20 ML VIAL As Ordered ONE
[2022-01-06 12:57] VITALS: BP 118/77
== END 2022-01-06 13:09 | disposition home or self-care (01) ==
LOC: M OPP 11:36
PROVIDERS: ATTEND Internal Medicine Gastroenterology
DX: K44.9 Diaphragmatic hernia without obstruction or gangrene (principal); K22.89 Other specified disease of esophagus; R12 Heartburn; R07.89 Other chest pain; Z86.16 Personal history of COVID-19; F17.210 Nicotine dependence, cigarettes, uncomplicated

== ENCOUNTER → 2023-03-11 | Outpatient (REF) | payer OTHER ==
[~2023-03-11] MED LIST changes: +LIDO15SO PO; -LIDO2SOL17 PO; -LIDOCAINE 2% 100MG/5ML SDV (FOR ANES.) As Ordered ONE; -NS 1,000 ML IV ONE; -propofoL 200 MG/20 ML VIAL As Ordered ONE
[2023-03-11 15:51] LABS: FREE T4 1.02 NG/DL (0.89-1.76)
[2023-03-11 15:52] LABS: THYROID STIMULATING HORMONE 1.144 uIU/ML (0.55-4.78)
[2023-03-11 16:00] LABS: ALBUMIN 3.6 G/DL (3.2-5.2); ALKALINE PHOSPHATASE 94 U/L (46-116); ALT/SGPT 24 U/L (7.0-40); AST/SGOT 16 U/L (<34); BILIRUBIN,TOTAL 0.2 MG/DL (0.3-1.2); BLOOD UREA NITROGEN 15 MG/DL (9-23); CALCIUM LEVEL 8.4 MG/DL (8.5-10.1); CARBON DIOXIDE LEVEL 25 MMOL/L (20-31); CHLORIDE LEVEL 108 MMOL/L (98-107); GLOMERULAR FILTRATION RATE > 60.0 (>60); GLUCOSE, FASTING 113 MG/DL (60-100); POTASSIUM SERUM 4.1 MMOL/L (3.5-5.1); SODIUM LEVEL 143 MMOL/L (136-145); TOTAL PROTEIN 6.9 G/DL (5.7-8.2)
== END ==
LOC: M SFHCADAM 11:07
PROVIDERS: ATTEND Family Medicine
DX: R25.1 Tremor, unspecified (principal)

== ENCOUNTER → 2024-02-05 | Outpatient (CLI) | payer OTHER ==
[~2024-02-05] MED LIST changes: +CEFD1CAP9 PO; -CEFD300C41 PO; -LIDO15SO PO; +LIDO15SO8 PO
== END ==
LOC: M WUC 12:56
PROVIDERS: ATTEND Nurse Practitioner Family
DX: M79.671 Pain in right foot (principal)

== ENCOUNTER → 2024-07-22 | Outpatient (REF) | payer OTHER ==
[2024-07-22 13:11] LABS: APPEARANCE, URINE HAZY (CLEAR); BACTERIA, URINE AUTO NEGATIVE (NEGATIVE); BILIRUBIN, URINE AUTO NEGATIVE (NEGATIVE); BLOOD, URINE BLOOD 2+ (NEGATIVE); COLOR, URINE YELLOW (YELLOW); GLUCOSE, URINE (UA) AUTO NEGATIVE (NEGATIVE); KETONE, URINE AUTO NEGATIVE (NEGATIVE); LEUKOCYTE ESTERASE, URINE AUTO 3+ (NEGATIVE); NITRITE, URINE AUTO NEGATIVE (NEGATIVE); PROTEIN, URINE AUTO 1+ mg/dL (NEGATIVE); RBC, URINE AUTO 8 /HPF (0-3); SPECIFIC GRAVITY URINE AUTO 1.013 (1.002-1.035); SQUAMOUS EPITHELIAL CELL UR AU 6 /HPF (0-6); UROBILINOGEN, URINE AUTO 0.2 mg/dL (0.0-2.0); WBC, URINE AUTO 59 /HPF (0-3)
== END ==
LOC: M LAB REF 12:18
PROVIDERS: ATTEND Physician Assistant Medical
DX: N39.0 Urinary tract infection, site not specified (principal)

== ENCOUNTER → 2024-08-09 | Outpatient (REF) | payer OTHER ==
[2024-08-09 12:21] LABS: APPEARANCE, URINE HAZY (CLEAR); BACTERIA, URINE AUTO 1+ (NEGATIVE); BILIRUBIN, URINE AUTO NEGATIVE (NEGATIVE); BLOOD, URINE BLOOD 1+ (NEGATIVE); COLOR, URINE YELLOW (YELLOW); GLUCOSE, URINE (UA) AUTO NEGATIVE (NEGATIVE); KETONE, URINE AUTO NEGATIVE (NEGATIVE); LEUKOCYTE ESTERASE, URINE AUTO NEGATIVE (NEGATIVE); NITRITE, URINE AUTO NEGATIVE (NEGATIVE); PROTEIN, URINE AUTO NEGATIVE (NEGATIVE); RBC, URINE AUTO 1 /HPF (0-3); SPECIFIC GRAVITY URINE AUTO 1.015 (1.002-1.035); SQUAMOUS EPITHELIAL CELL UR AU 6 /HPF (0-6); UROBILINOGEN, URINE AUTO 0.2 mg/dL (0.0-2.0); WBC, URINE AUTO 1 /HPF (0-3)
== END ==
LOC: M LAB REF 12:05
PROVIDERS: ATTEND Physician Assistant Medical
DX: N39.0 Urinary tract infection, site not specified (principal)

== ENCOUNTER → 2025-01-23 | Outpatient (REF) | payer OTHER ==
[~2025-01-23] MED LIST changes: -SIME180C25 PO; +SIME1CAP4 PO
[2025-01-23 15:53] LABS: BASO % 0.3 % (0.0-1.0); EOS # 0.2 10^3/uL (0.0-0.5); EOS % 1.6 % (0.0-3.0); HEMATOCRIT 39.7 % (36.0-47.0); HEMOGLOBIN 12.9 g/dl (12.0-15.5); LYMPH # 2.9 10^3/uL (1.5-5.0); LYMPH % 31.1 % (24.0-44.0); MEAN CORPUSCULAR HEMOGLOBIN 28.8 pg (27.0-33.0); MEAN CORPUSCULAR HGB CONC 32.5 g/dl (32.0-36.5); MEAN CORPUSCULAR VOLUME 88.6 fl (80.0-96.0); MONO # 0.5 10^3/uL (0.0-0.8); MONO % 5.3 % (2.0-8.0); NEUTROPHILS # 5.6 10^3/uL (1.5-8.5); NEUTROPHILS % 60.9 % (36.0-66.0); PLATELET COUNT, AUTOMATED 280 10^3/uL (150-450); RED BLOOD COUNT 4.48 10^6/uL (4.00-5.40); WHITE BLOOD COUNT 9.2 10^3/uL (4.0-10.0)
[2025-01-23 16:00] LABS: ALBUMIN 3.4 G/DL (3.2-5.2); ALKALINE PHOSPHATASE 78 U/L (35-104); ALT/SGPT 25 U/L (7.0-40); AST/SGOT 15 U/L (<34); BILIRUBIN,TOTAL 0.3 MG/DL (0.3-1.2); BLOOD UREA NITROGEN 13 MG/DL (9-23); CALCIUM LEVEL 8.8 MG/DL (8.5-10.1); CARBON DIOXIDE LEVEL 27 MMOL/L (20-31); CHLORIDE LEVEL 105 MMOL/L (98-107); CHOLESTEROL LEVEL 210 MG/DL (<200); CHOLESTEROL RISK RATIO 4.06 (<5); CREATININE FOR GFR 0.68 MG/DL (0.55-1.30); GLOMERULAR FILTRATION RATE > 60.0 (>60); GLUCOSE, FASTING 85 MG/DL (60-100); HDL CHOLESTEROL 51.6 MG/DL (>40); NON-HDL-C 158.4 MG/DL; POTASSIUM SERUM 4.1 MMOL/L (3.5-5.1); SODIUM LEVEL 140 MMOL/L (136-145); TOTAL PROTEIN 7.1 G/DL (5.7-8.2); TRIGLYCERIDES LEVEL 162 MG/DL (<150)
[2025-01-23 16:01] LABS: FREE T4 1.15 NG/DL (0.89-1.76); THYROID STIMULATING HORMONE 1.943 uIU/ML (0.55-4.78)
[2025-01-23 16:40] LABS: HEMOGLOBIN A1c 4.9 % (4.0-6.0)
== END ==
LOC: M SFHCADAM 09:25
PROVIDERS: ATTEND Family Medicine
DX: Z00.00 Encounter for general adult medical examination without abnormal findings (principal)

== ENCOUNTER 2025-03-06 11:29 | Emergency (ER) | payer OTHER ==
[~2025-03-06] VITALS: Ht 165.1 cm; Wt 92.9 kg
[2025-03-06 11:34] VITALS: TEMP 98.6
[2025-03-06] MEDS: NS (Normal Saline) 0.9% 1,000 ML IV ONE (14:20)
[2025-03-06 14:42] LABS: BASO % 0.1 % (0.0-1.0); EOS % 0.3 % (0.0-3.0); HEMATOCRIT 41.6 % (36.0-47.0); HEMOGLOBIN 14.1 g/dl (12.0-15.5); LYMPH # 2.2 10^3/uL (1.5-5.0); LYMPH % 28.6 % (24.0-44.0); MEAN CORPUSCULAR HGB CONC 33.9 g/dl (32.0-36.5); MEAN CORPUSCULAR VOLUME 85.4 fl (80.0-96.0); MONO # 0.4 10^3/uL (0.0-0.8); MONO % 4.8 % (2.0-8.0); NEUTROPHILS % 65.9 % (36.0-66.0); PLATELET COUNT, AUTOMATED 353 10^3/uL (150-450); RED BLOOD COUNT 4.87 10^6/uL (4.00-5.40); WHITE BLOOD COUNT 7.6 10^3/uL (4.0-10.0)
[2025-03-06 15:09] LABS: BLOOD UREA NITROGEN 14 MG/DL (9-23); CARBON DIOXIDE LEVEL 26 MMOL/L (20-31); CHLORIDE LEVEL 105 MMOL/L (98-107); CREATININE FOR GFR 0.66 MG/DL (0.55-1.30); GLOMERULAR FILTRATION RATE > 90.0 (>60); GLUCOSE, FASTING 92 MG/DL (60-100); POTASSIUM SERUM 4.1 MMOL/L (3.5-5.1); SODIUM LEVEL 139 MMOL/L (136-145)
[2025-03-06 15:12] LABS: THYROID STIMULATING HORMONE 0.886 uIU/ML (0.55-4.78)
[2025-03-06 15:13] LABS: HCG, SERUM QUALITATIVE NEGATIVE (NEGATIVE)
[2025-03-06 16:20] VITALS: BP 123/77; O2SAT 98
== END 2025-03-06 16:21 | disposition home or self-care (01) ==
LOC: M ED 11:29
DX: R42 Dizziness and giddiness (principal); F41.9 Anxiety disorder, unspecified; F17.290 Nicotine dependence, other tobacco product, uncomplicated; Z79.899 Other long term (current) drug therapy